=== PATIENT | male | born 1970 | race Caucasian/White ===

== ENCOUNTER 2020-07-30 22:41 | Emergency (ER) | payer OTHER ==
[2020-07-31] MEDS ORDERED: IBUPROFEN 600 MG TABLET ONE (00:10)
== END 2020-07-31 00:13 | disposition home or self-care (01) ==
LOC: EDH 22:41
DX: S42.002A Fracture of unspecified part of left clavicle, initial encounter for closed fracture (principal); V00.131A Fall from skateboard, initial encounter; Y93.51 Activity, roller skating (inline) and skateboarding; Y92.098 Other place in other non-institutional residence as the place of occurrence of the external cause; Y99.8 Other external cause status
CPT/HCPCS: 73030